=== PATIENT | female | born 1945 | race Caucasian/White ===

== ENCOUNTER → 2023-10-12 12:45 | Outpatient (REF) | payer MEDICARE, BC, SELFPAY | LOC: WDC 12:45 | PROVIDERS: ATTENDING PHYSICIAN Family Medicine | DX: Z12.31 Encounter for screening mammogram for malignant neoplasm of breast (principal) | CPT/HCPCS: 77063; 77067 ==

== ENCOUNTER → 2023-11-05 11:13 | Outpatient (REF) | payer MEDICARE, BC, SELFPAY | LOC: RAD 11:13 | PROVIDERS: ATTENDING PHYSICIAN Family Medicine | DX: R22.42 Localized swelling, mass and lump, left lower limb (principal) | CPT/HCPCS: 93971 ==

== ENCOUNTER 2024-02-10 02:44 | Observation (INO) | payer MEDICARE, BC, SELFPAY ==
[2024-02-10] VITALS (15 sets, daily range): BP systolic 103–176; BP diastolic 50–73
[2024-02-10] MEDS: NSS 1000 IV ×2 (00:15→05:39)
[2024-02-10] MEDS: BENADRYL 25 MG IV (00:16)
[2024-02-10] MEDS: REGLAN 10 MG IV (00:17)
--- NOTE | 2024-02-10 00:33 | ED.GENMED ---
History of Present Illness
General
Chief Complaint: Abdominal Symptoms
Source: patient
Exam Limitations: none
Time Seen by Provider: 02/10/24 00:08
Nursing documentation reviewed up to this point in time: agreed with
History of Present Illness
History of Present Illness:
The patient is an 78-year-old female who reports that several hours ago she developed severe dizziness as if the room was spinning. Patient reports she had vertigo years ago and this is a similar episode. She denies headache, chest pain or
shortness of breath. Patient reports that the dizziness became so bad that she has been persistently vomiting. Her daughter reports that she gave her 3 meclizine tablets and Zofran but she could not keep them down. Patient reports she recently
was treated with steroids for bronchitis. However she denies any current fever or sore throat. Patient denies vision changes. She reports a mild headache but not severe. Patient reports symptoms get worse when she moves her head quickly or
changes positions. Patient denies ear pain and ringing of the ears
Past History
Past History
ED Past Medical History: HTN and NIDDM
ED Past Surgical History: Cholecystectomy and Gynecological
Social History
Tobacco: Non-smoker
Alcohol: None
Drug: None
Personal: Other
Living: other
Employment: Retired
Family History
Family History: Other
Review of Systems
Review of Systems
Allergies reviewed?: Yes
All Other Systems: ROS reviewed and negative except as documented in HPI and ROS
Constitutional: Reports no symptoms
EENT: Reports no symptoms
Respiratory: Reports no symptoms
Cardiac: Reports no symptoms
ABD/GI: Reports nausea and vomiting
: Reports no symptoms
Musculoskeletal: Reports no symptoms
Skin: Reports no symptoms
Neurological: Reports dizzy
Endocrine: Reports no symptoms
Hematologic/Lymphatic: Reports no symptoms
Psychiatric: Reports no symptoms
Phy Exam
Physical Exam
Physical Exam:
Physical Exam
General: Patient appears anxious. She is actively vomiting. Horizontal nystagmus
Neck: supple. no meningeal signs. normal psoterior pharynx
Heart: s1/s2 regular rate and rhythm,
Lungs: no acute respiratory distress. clear bilaterally
Abdomen: Soft, nontender
Neuro: alert and orientedx3. no focal neurological deficits
Skin: no rash
Psychiatric: well kept. interactive and cooperative
Extremities: no edema. no calf tenderness. negative homans. good distal pulses
Course
Orders/Labs/Results
Orders:
Orders
02/10/24 00:08
Diphenhydramine [Benadryl] 50 mg .ROUTE .STK-MED ONE
Metoclopramide [Reglan] 10 mg .ROUTE .STK-MED ONE
Metoclopramide [Reglan] 10 mg IV NOW STA
02/10/24 00:09
Diphenhydramine [Benadryl] 25 mg IV NOW STA
02/10/24 00:18
Electrocardiogram (*1) Urgent
Reason for Study: Vertigo / Dizzy
EKG- Treatment ONCE
02/10/24 00:30
Complete Blood Count/With Diff Urgent
Comprehensive Metabolic Panel Urgent
Lipase Urgent
Troponin I Urgent
02/10/24 00:34
CT Head W/o Iv Contrast Urgent
Comment:
Reason For Exam: dizziness
Abnormal Lab Results
02/10/24
00:30
WBC 12.2 H 10^3/uL
(4.8-10.8)
MCHC 32.0 L g/dL
(33.0-37.0)
Abs Immat Gran (auto) 0.2 H 10^3/uL
(0-0.05)
Absolute Neuts (auto) 8.2 H 10^3/uL
(1.4-6.5)
Absolute Monos (auto) 0.8 H 10^3/uL
(0.1-0.6)
Immature Gran % 1.8 H %
(0-0.5)
Carbon Dioxide 20 L mmol/L
(22-30)
BUN 31 H mg/dl
(7-17)
Creatinine 1.1 H mg/dL
(0.6-1.0)
Glucose 333 H mg/dl
(70-99)
Alkaline Phosphatase 131 H U/L
(38-126)
Lipase 312 H U/L
(23-300)
02/10/24 00:30
02/10/24 00:30
Vital Signs
Initial and Last Documented VS:
Initial Vital Signs
Temp Pulse Resp BP Pulse Ox
97.5 F 82 20 176/73 94
02/10/24 00:08 02/10/24 00:08 02/10/24 00:08 02/10/24 00:08 02/10/24 00:08
Last Documented Vital Signs
Temp Pulse Resp BP Pulse Ox
97.5 F 89 14 145/63 95
02/10/24 00:08 02/10/24 01:04 02/10/24 01:04 02/10/24 01:04 02/10/24 01:04
MDM/Problems Addressed
Differential Diagnosis Includes:
Acute benign positional vertigo, CVA, intracranial hemorrhage, cardiac arrhythmia
MDM/Problems Addressed:
Patient presents with acute dizziness, nausea and vomiting
Chronic conditions affecting care:
Given patient has a history of high blood pressure, she is at increased risk of having a CVA
Chronic conditions affecting care: HTN
Acute Exacerbation and/or Progression of Chronic Illness:
Patient is acutely hypertensive, however, it is likely due to persistent vomiting
Acute Exacerbation and/or Progression of Chronic Illness: HTN
*Radiology
Radiology exam reviewed: radiology read reviewed
*Pulse Oximetry
Patient hypoxic: no
*EKG
Interpreted by ED Provider?: Yes
Interpretation: abnormal
Comparison EKG: changes noted
Rate: normal
Rhythm: sinus
[place]: normal axis
Interval: long QT
QRS Pattern: normal QRS
Ischemia: non-specific ST changes
*Operations Liaison Interpretation
Rate: normal
Interpretation: normal
Rhythm: sinus
*Critical Care Note
Total Time (30-74mins, 75-104mins- exclusive of procedures): Not Applicable
Data Reviewed
Source: patient and family
Patient Management
Social determinants of health affecting care: Living situation and Strong social support
Discussion with other providers: Hospitalist
Escalation/DeEscalation of care consider admission/obs:
Patient has been watched for several hours in the emergency department. She is sleepy from the Benadryl and Reglan but states that she still feels very dizzy when she opens her eyes. Given persistent symptoms, decision made to admit the patient.
We will hold off on any further antiemetics at this time as her QT is prolonged
ED Attending Note
-
Portions of this chart may have been created with voice recognition software.� Occasional wrong word or��sound alike� substitutions may have occurred due to the inherent limitations of voice recognition software.
Discharge Plan
Departure
Patient Disposition: Admit
Date of Disposition: 02/10/24
Time of Disposition: 02:04
Admit to: Telemetry
Presentation/result/management discussed w/ accepting MD/DO: Hospitalist
Patient with high blood pressure during this ER visit?: Yes
Condition: Good
Discharge Problem:
Prolonged QT interval, Intractable vertigo
Prescriptions:
No Action
meclizine 12.5 MG tablet
1 tab PO DAILY
meclizine 12.5 MG tablet
2 tablets PO QPM
glyburide-metformin 1 EACH tablet
2 tablets PO QPM
glyburide-metformin 2.5 MG/500 MG tablet
1 tab PO DAILY
atorvastatin 80 MG tablet
80 mg PO QPM Qty: 30 11RF
clopidogrel 75 MG tablet
75 mg PO DAILY Qty: 30 11RF
aspirin 81 MG tablet,delayed release (DR/EC)
81 mg PO DAILY Qty: 0 0RF
lisinopril 2.5 MG tablet
2.5 mg PO DAILY Qty: 30 11RF
metoprolol succinate 25 MG tablet extended release 24 hr
25 mg PO DAILY Qty: 0 0RF
Referrals:
Blake Sotelo DO [Family Provider] -
Interventions
Interventions:
*Risk Screen - Suicide Last Done: 02/10/24 00:08
*General Assessment Last Done: 02/10/24 00:08
*Neglect/Abuse Screening Last Done: 02/10/24 00:08
ED- Fall Risk Assessment Last Done: 02/10/24 00:18
*ED COVID-19 Vaccine History Last Done: 02/10/24 00:18
SX-Fqeark-Ijgiegzlfv Assessment Last Done: 02/10/24 00:18
Discharge Date and Time
Print Language: BENGALI
[2024-02-10 00:46] LABS: % Basophils 0.4 % (0-2); % Eosinophils 0.7 % (0-6); % Immature Granulocytes 1.8 % (0-0.5); % Lymphocytes 23.6 % (20.5-51.1); % Monocytes 6.2 % (1.7-9.3); % Neutrophils 67.3 % (42.2-75.2); Absolute Basophils 0.1 10^3/uL (0-0.2); Absolute Eosinophils 0.1 10^3/uL (0-0.7); Absolute Immature Granulocytes 0.2 10^3/uL (0-0.05); Absolute Lymphocytes 2.9 10^3/uL (1.2-3.4); Absolute Monocytes 0.8 10^3/uL (0.1-0.6); Absolute Neutrophils 8.2 10^3/uL (1.4-6.5); Hematocrit 41.2 % (37.0-47.0); Hemoglobin 13.2 g/dL (12.0-16.0); Mean Corpuscular Hgb 28.4 pg (27.0-31.0); Mean Corpuscular Volume 88.8 fL (81.0-99.0); Mean Platelet Volume 10.4 fL (7.4-10.4); Nucleated Red Blood Cells % 0 %; Platelet Count 270 10^3/uL (130-400); Red Blood Cell Count 4.64 10^6/uL (4.20-5.40); Red Cell Dist. Width 13.6 % (11.5-14.5); White Blood Cell Count 12.2 10^3/uL (4.8-10.8)
[2024-02-10 01:06] LABS: Troponin I < 0.012 ng/ml
[2024-02-10 01:37] LABS: ALT (SGPT) 20 U/L (0-35); AST (SGOT) 21 U/L (14-36); Albumin 4.1 g/dl (3.5-5.0); Alkaline Phosphatase 131 U/L (38-126); Blood Urea Nitrogen 31 mg/dl (7-17); Calcium 9.8 mg/dl (8.4-10.2); Carbon Dioxide 20 mmol/L (22-30); Chloride 102 mmol/L (98-107); Glucose 333 mg/dl (70-99); Lipase 312 U/L (23-300); Potassium 4.5 mmol/L (3.5-5.1); Sodium 137 mmol/L (135-145); Total Bilirubin 0.6 mg/dl (0.2-1.3); Total Protein 6.7 g/dl (6.3-8.2)
--- NOTE | 2024-02-10 02:35 | HPS.HSE ---
Family Physician
-
Family Physician: Blake Sotelo, DO
Chief Complaint
-
Dizziness
History of Present Illness
Patient is an 78y F with PMH significant for ASCVD, hypertension, DM-II and vertigo who presents to ED complaining of dizziness and N/V. Patient states that her symptoms started on Thursday and have persisted throughout the day. She reports room
spinning, dizziness, unsteadiness. She denies any fall, injury or LOC. Patient had multiple episodes of non-bloody emesis at home. She attempted to take meclizine and Zofran; however, she threw up each time she took a medication.
Patient ultimately presented to the ED for further evaluation.
Patient notes that she had a similar episode attributed to vertigo several years ago. These symptoms are identical.
Patient states that she has recently been ill with 'bronchitis'. She was treated with a course of oral prednisone which she completed about 1 week ago.
She was also changed from Rybelsus to injectable semaglutide about 2 weeks ago.
No other new medications / changes.
Medical History
Past Medical History
Past Medical History: Reports Other
Additional Past Medical History:
ASCVD
Hypertension
DM-II
Vertigo
Past Surgical History: Reports Other
Additional Past Surgical History:
PTCA with Stent
T&A
Cholecystectomy
Hysterectomy
Cataracts
Social History
Tobacco: Non-smoker
Alcohol: None
Drug: None
Family History
Family History: Not pertinent
Allergies / Home Medications
Allergies reflects when Allergies were last updated in [facility].
Home Medications with original date entered in [facility]
Allergy/Medication List:
Allergies
Allergy/AdvReac Type Severity Reaction Status Date / Time
No Known Allergies Allergy Unverified 07/30/15 19:06
Home Medications
glyburide 2.5 mg-metformin 500 mg tablet 1 tab PO DAILY 07/29/15
glyburide 2.5 mg-metformin 500 mg tablet 2 tablets PO QPM 07/29/15
meclizine 12.5 mg tablet 1 tab PO DAILY 07/29/15
meclizine 12.5 mg tablet 2 tablets PO QPM 07/29/15
aspirin 81 mg tablet,delayed release 81 mg PO DAILY ##0 08/02/15
atorvastatin 80 mg tablet 80 mg PO QPM ##30 08/02/15
clopidogrel 75 mg tablet 75 mg PO DAILY ##30 08/02/15
lisinopril 2.5 mg tablet 2.5 mg PO DAILY ##30 08/02/15
metoprolol succinate 25 mg tablet,extended release 24 hr 25 mg PO DAILY #0 tabs 08/02/15
Patient is unable to confirm her current med list.
Review of Systems
-
History Source: Patient
A 12 point ROS was completed and negative except as noted: Yes
Constitutional: Reports Fatigue; Denies Fever or Chills
EENT: Denies Sore Throat
Respiratory: Denies Cough or Trouble Breathing
Cardiac: Denies Chest Pain or Palpitations
Abdomen/GI: Reports Nausea and Vomiting; Denies Abdominal Pain or Diarrhea
: Denies Dysuria or Frequency
Musculoskeletal: Denies Joint Pain or Edema
Neurological: Reports Dizzy; Denies Headache
Psych: Denies Depression or Anxiety
Physical Exam
Vital Signs
Vital Signs
Temp Pulse Resp BP Pulse Ox
97.5 F 89 14 145/63 95
02/10/24 00:08 02/10/24 01:04 02/10/24 01:04 02/10/24 01:04 02/10/24 01:04
Physical Exam
General: Other (78y F in no acute distress.)
HEENT: Moist mucous membranes, PERRLA and Other (Pos nystagmus on exam. Patient unable to keep eyes open for extended period due to dizziness.)
Respiratory: Clear; No Wheezes, Rales or Rhonchi
Cardiac: S1/S2 and Regular Rhythm; No Murmur
GI: Soft, Non Tender, Non Distended and Normal Bowel Sounds
Musculoskeletal: No Clubbing, No Cyanosis and No Edema
Neuro: AO x 3 and Nonfocal/grossly intact
Laboratory Results
-
02/10/24 00:30
02/10/24:30
Laboratory Results
Total Bilirubin 0.6 mg/dl (0.2-1.3) 02/10/24:30
AST 21 U/L (14-36) 02/10/24:30
ALT 20 U/L (0-35) 02/10/24:30
Alkaline Phosphatase 131 U/L (38-126) H 02/10/24:30
Troponin I < 0.012 ng/ml 02/10/24:
Lipase 312 U/L (23-300) H 02/10/24 00:30
Impression/Plan
-
A/P: Patient is an 78y F with PMH significant for ASCVD, DM-II and prior vertigo who presents to ED complaining of dizziness and N/V.
Vertigo
- Observe overnight for further evaluation and treatment.
- Patient with persistent symptoms in the ED after antiemetics.
- Will give abortive medications for vertigo IV (Valium) and follow for improvement in symptoms.
- Supportive care with IVFs, etc.
- Meclizine PO or Valium IV PRN recurrent / persistent symptoms.
- PT / OT evaluation in the AM.
- Follow for clinical improvement.
ASCVD
- Stable. Continue ASA, statin, beta-jazmine.
- Reconcile meds in the AM and resume other meds as appropriate.
DM-II
- Hyperglycemia - presumably due to recent steroids - though patient states she completed these about one week ago.
- Hold PO medication / semaglutide / etc.
- Follow glucose and cover with SSI as needed.
- Update A1C.
DVT Prophylaxis: SCDs
Code Status: Full
[2024-02-10] MEDS: VALIUM INJECTION 2 MG IV (03:07)
[2024-02-10 06:24] LABS: Hematocrit 42.5 % (37.0-47.0); Hemoglobin 13.2 g/dL (12.0-16.0); Mean Corp Hgb Conc. 31.1 g/dL (33.0-37.0); Mean Corpuscular Hgb 27.8 pg (27.0-31.0); Mean Corpuscular Volume 89.5 fL (81.0-99.0); Platelet Count 229 10^3/uL (130-400); Red Blood Cell Count 4.75 10^6/uL (4.20-5.40); Red Cell Dist. Width 13.4 % (11.5-14.5); White Blood Cell Count 11.6 10^3/uL (4.8-10.8)
[2024-02-10 07:08] LABS: Blood Urea Nitrogen 30 mg/dl (7-17); Calcium 9.3 mg/dl (8.4-10.2); Carbon Dioxide 21 mmol/L (22-30); Chloride 104 mmol/L (98-107); Glucose 267 mg/dl (70-99); Potassium 5.2 mmol/L (3.5-5.1); Sodium 140 mmol/L (135-145); eGFR 56.95
--- NOTE | 2024-02-10 08:15 | EDRN ---
Patient daughter states 'I need to get going to work we are not going to wait for the doctor to come and discharge us we are going to leave against medical advice. This RN notified MD Kamara who is aware and can not come down at this time. This RN
reviewed AMA paper with patient and daughter explaining patient leaving of her own free will against medical advice and possible related to that decision.
--- NOTE | 2024-02-10 08:18 | W.DCSUMMARY ---
Discharge Summary
Discharge Data
Date of Admission: 02/10/24
Date of Discharge: 02/10/24
-
Pending Results: No
Hospital Course
Patient 78 years old female with history of hypertension and diabetes mellitus was admitted overnight for vertigo. Patient was kept in observation and following morning she felt symptomatically better therefore she did not wait for me to evaluate
her today and she wanted to sign AGAINST MEDICAL ADVICE. She did not wait for any instructions and I did not see the patient today. No other events were noticed.
Discharge Plan
-
Patient Disposition: Against Medical Advice
Referrals:
Blake Sotelo DO [Family Provider] -
Prescriptions:
No Action
atorvastatin 80 MG tablet
80 mg PO QPM Qty: 30 11RF
aspirin 81 MG tablet,delayed release (DR/EC)
81 mg PO DAILY Qty: 0 0RF
metoprolol succinate 25 MG tablet extended release 24 hr
25 mg PO DAILY Qty: 0 0RF
metformin 1,000 mg Tablet
1,000 mg PO DAILY
lisinopril 2.5 mg Tablet
2.5 mg PO DAILY
cholecalciferol (vitamin D3) [Vitamin D3] 25 mcg (1,000 unit) Tablet
25 mcg PO DAILY
PreserVision AREDS 2,148 mcg-113 mg-45 mg-17.4mg Tablet
2 tab PO DAILY
dapagliflozin propanediol [Farxiga] 10 mg Tablet
10 mg PO DAILY
Glucosamine Chondroitin 550-30-1 mg Capsule
1 cap PO DAILY
Gemtesa 75 mg Tablet
75 mg PO DAILY
Mounjaro 2.5 mg/0.5 mL Pen Injector
2.5 mg SC FR
Rx Instructions:
for 4 weeks
Discharge Date and Time
Discharge Date/Time: 02/10/24 10:32
Print Language: KOSOVAN
--- NOTE | 2024-02-10 10:22 | CM ---
Per nursing, patient left AMA
Was not seen by Case Management before leaving
[2024-02-10 14:31] LABS: Glycohemoglobin (HgbA1c) 13.2 % (4.0-5.6)
== END 2024-02-10 10:32 | disposition left against medical advice (07) ==
LOC: ED 02:44
PROVIDERS: ADMITTING PHYSICIAN Hospitalist; ATTENDING PHYSICIAN Hospitalist; EMERGENCY PHYSICIAN Emergency Medicine; FAMILY PHYSICIAN Family Medicine
DX: R42 Dizziness and giddiness (principal); R11.10 Vomiting, unspecified; R10.9 Unspecified abdominal pain; R51.9 Headache, unspecified; E11.65 Type 2 diabetes mellitus with hyperglycemia; I10 Essential (primary) hypertension; I25.10 Atherosclerotic heart disease of native coronary artery without angina pectoris; E11.36 Type 2 diabetes mellitus with diabetic cataract; Z90.49 Acquired absence of other specified parts of digestive tract; R94.31 Abnormal electrocardiogram [ECG] [EKG]; Z79.02 Long term (current) use of antithrombotics/antiplatelets; Z79.82 Long term (current) use of aspirin; Z79.84 Long term (current) use of oral hypoglycemic drugs; Z90.710 Acquired absence of both cervix and uterus; Z95.5 Presence of coronary angioplasty implant and graft
CPT/HCPCS: 70450; 80048; 80053; 83036; 83690; 84484; 85025; 85027; 93005

== ENCOUNTER 2024-03-21 06:16 | Day surgery (SDC) | payer MEDICARE, BC, SELFPAY ==
[2024-03-21 13:24] LABS: Glucose - Point of Care 215 mg/dl (70-99)
== END 2024-03-21 13:43 | disposition home or self-care (01) ==
LOC: GI 06:16
PROVIDERS: ATTENDING PHYSICIAN Internal Medicine Gastroenterology
DX: Z12.11 Encounter for screening for malignant neoplasm of colon (principal); K64.8 Other hemorrhoids; D12.4 Benign neoplasm of descending colon; D12.5 Benign neoplasm of sigmoid colon; K57.30 Diverticulosis of large intestine without perforation or abscess without bleeding; R13.10 Dysphagia, unspecified; K31.89 Other diseases of stomach and duodenum; K22.10 Ulcer of esophagus without bleeding; Z86.0100 Personal history of colon polyps, unspecified; Z80.0 Family history of malignant neoplasm of digestive organs
CPT/HCPCS: 45380; 43239; 88305; 88312; 82962; 88342

== ENCOUNTER → 2024-10-13 11:24 | Outpatient (REF) | payer MEDICARE, BC, SELFPAY | LOC: WDC 11:24 | PROVIDERS: ATTENDING PHYSICIAN Family Medicine | DX: Z12.31 Encounter for screening mammogram for malignant neoplasm of breast (principal) | CPT/HCPCS: 77063; 77067 ==

== ENCOUNTER → 2024-12-12 09:37 | Outpatient (REF) | payer MEDICARE, BC, SELFPAY | LOC: RAD 09:37 | PROVIDERS: ATTENDING PHYSICIAN Dermatology; FAMILY PHYSICIAN Family Medicine | DX: Z85.820 Personal history of malignant melanoma of skin (principal) | CPT/HCPCS: 71046 ==